=== PATIENT | male | born 1935 | race Caucasian/White ===

== ENCOUNTER 2021-01-05 16:35 | Emergency (ER) | payer OTHER ==
[2021-01-05 18:10] LABS: BASOPHIL 0.4 % (0-2); BILIRUBIN NEGATIVE (NEGATIVE); BLOOD 2+ Ery/uL (NEGATIVE); CLARITY CLEAR (CLEAR); COLOR YELLOW (YELLOW); EOSINOPHIL 1.8 % (0-7); GLUCOSE (U) NORMAL (NORMAL); HCT 46.5 % (42.0-52.0); HGB 14.8 g/dl (13.2-18.0); LEUKOCYTES NEGATIVE Leu/uL (NEGATIVE); LYMPHOCYTE 11.2 % (15-48); MCHC 31.8 g/dL (32.0-36.0); MCV 84.7 fL (78.0-100.0); MONOCYTE 8.1 % (0-12); NEUTROPHIL 77.4 % (41-80); NITRITE NEGATIVE (NEGATIVE); NRBC 0; PLT 238 K/uL (150-400); PROTEIN 2+ mg/dL (NEGATIVE); RBC 5.49 M/uL (4.70-6.00); RDW 17.9 % (11.5-14.0); UROBILINOGEN 0.2 mg/dL (0.2-1.0); WBC 10.3 K/uL (4.0-10.5)
[2021-01-05 18:14] LABS: BACTERIA TRACE; URINARY RBC RARE
[2021-01-05 18:19] LABS: ALBUMIN 2.9 g/dL (3.4-5.0); BILIRUBIN - TOTAL 0.7 mg/dL (0.2-1.0); BUN/CREAT RATIO (CALC) 26.1 RATIO; CREATININE 1.76 mg/dL (0.67-1.17); GLOBULIN (CALCULATION) 3.9 g/dL; POTASSIUM 4.5 mmol/L (3.5-5.1); TOTAL PROTEIN 6.8 g/dL (6.4-8.2)
[2021-01-05 18:26] LABS: LACTIC ACID 1.3 mmol/L (0.4-1.9)
== END 2021-01-05 19:45 | disposition home or self-care (01) ==
LOC: FER 16:35
PROVIDERS: Emergency Medicine
DX: K59.00 Constipation, unspecified (principal); E11.9 Type 2 diabetes mellitus without complications; J44.9 Chronic obstructive pulmonary disease, unspecified; E07.9 Disorder of thyroid, unspecified; N40.0 Benign prostatic hyperplasia without lower urinary tract symptoms; Z79.899 Other long term (current) drug therapy
CPT/HCPCS: 36415; 80053; 81001; 83605; 83690; 85025; 87040; 87088